=== PATIENT | female | born 1950 | race Caucasian/White ===

== ENCOUNTER 2017-12-27 15:28 | Outpatient (CLI) | payer MEDICARE ==
--- NOTE | 2017-12-27 16:56 | MRI ---
MRI OF THE RIGHT SHOULDER WITHOUT CONTRAST: 12/27/17 INDICATIONS: Right shoulder pain. FINDINGS: Motion artifact limits image detail. There is advanced glenohumeral osteoarthrosis. There is a prominent inferior projecting osteophyte of f of the humeral head. The biceps tendon appears to be located but there is marked tendinosis of the intra-articular biceps tendon. There is prominent degenerative fraying of the glenoid labrum. There i s prominent subchondral cyst-like abnormality seen involving the glenoid head. The rotator cuff does appear to be intact. There is diffuse moderate tendinosis of the supraspinatus, subscapularis and inf raspinatus. There is nonspecific moderate atrophy of the teres minor. This may be related to mass eff ect from the prominent humeral head osteophyte on the quadrangular space. Deltoid demonstrates normal muscle signal intensity and bulk. There is moderate AC joint osteoarthrosis. No lymphadenopathy is e vident. IMPRESSION: 1. Advanced osteoarthrosis of the right glenohumeral joint with a prominent inferior projecting osteophyte off of the humeral head causing mass effect on the quadrangular space with suspected compr ession of the axillary nerve and prominent atrophy of the teres minor. 2. No full thickness rotator cuff tear is demonstrated. There is moderate tendinosis of the subs capularis, supraspinatus and infraspinatus. 3. Prominent tendinosis of the intra-articular biceps tendon. 4. Moderate AC joint osteoarthrosis. 5. Some limitation of exam due to motion artifact. POS: [facility]
== END 2017-12-27 15:29 | disposition home or self-care (01) ==
LOC: SCSMRI 15:28
PROVIDERS: ATTEND Orthopaedic Surgery
DX: M25.511 Pain in right shoulder (principal); M19.011 Primary osteoarthritis, right shoulder; M25.711 Osteophyte, right shoulder; M67.813 Other specified disorders of tendon, right shoulder

== ENCOUNTER 2018-03-11 07:35 | Outpatient (CLI) | payer MEDICARE ==
--- NOTE | 2018-03-11 11:47 | CT ---
CT CHEST WITHOUT CONTRAST: 03/11/2018 PROVIDED CLINICAL HISTORY: Current smoker with nicotine dependence. Low dose lung screening. COMPARISON: 11/19/2016 TECHNIQUE: Examination was performed per low dose screening chest CT protocol. FINDINGS: The heart, pericardium, and great vessels are suboptimally evaluated without IV contrast but demonstr ate an unremarkable, unenhanced CT appearance, with the exception of vascular calcification. The air way appears patent and of normal caliber. There is no evidence for thoracic lymph node enlargement w ith limitations due to lack of IV contrast. A patchy, nonspecific focus of ground glass opacity in t he superior segment of the left lower lobe is stable. There are scattered additional areas of inhomo geneous density without a focal nodule. There is no pleural fluid, pleural thickening, or pneumothor ax apparent. The osseous structures demonstrate no concerning lytic or blastic lesions. IMPRESSION: Lung-RADS category 2-Benign findings. Annual screening recommended. POS: [facility]
== END 2018-03-11 07:36 | disposition home or self-care (01) ==
LOC: CT 07:35
PROVIDERS: ATTEND Family Medicine
DX: F17.210 Nicotine dependence, cigarettes, uncomplicated (principal); Z00.00 Encounter for general adult medical examination without abnormal findings
CPT/HCPCS: G0297

== ENCOUNTER 2018-04-08 08:51 | Outpatient (CLI) | payer MEDICARE ==
--- NOTE | 2018-04-08 10:14 | MMO ---
BILATERAL SCREENING MAMMOGRAMS: Comparison: 2016 This study is interpreted with the assistance of computer aided detection. FINDINGS: There are scattered fibroglandular densities. There is a new 6 mm nodular density in the mid left irwin ast seen on CC view only. I recommend that this be further evaluated with diagnostic left breast exam . IMPRESSION: BIRADS 0 - further imaging of the left breast required. POS: [facility]
== END 2018-04-08 08:52 | disposition home or self-care (01) ==
LOC: SCSMAMMO 08:51
PROVIDERS: ATTEND Family Medicine
DX: Z12.31 Encounter for screening mammogram for malignant neoplasm of breast (principal)
CPT/HCPCS: 77067

== ENCOUNTER 2018-04-17 14:13 | Outpatient (CLI) | payer MEDICARE ==
--- NOTE | 2018-04-17 15:48 | ULT ---
LIMITED LEFT BREAST ULTRASOUND: Date: 04/17/18 PROVIDED CLINICAL HISTORY: Abnormal mammogram. FINDINGS: Limited sonographic interrogation was performed of the left breast in the region of mammographic conc alon. A simple cyst is present at the retroareolar portion of the left breast corresponding to the tamiko mogram findings. IMPRESSION: BIRADS 2: Benign Finding(s) Return to annual screening mammography is recommended. POS: [facility]
== END 2018-04-17 14:14 | disposition home or self-care (01) ==
LOC: BICMAMMO 14:13
PROVIDERS: ATTEND Family Medicine
DX: R92.2 Inconclusive mammogram (principal); N63.20 Unspecified lump in the left breast, unspecified quadrant; Z80.3 Family history of malignant neoplasm of breast
CPT/HCPCS: 76642; 77065; G0279

== ENCOUNTER 2019-01-28 07:48 | Outpatient (CLI) | payer MEDICARE ==
[2019-01-28] MEDS ORDERED: Iopamidol 370 76% 100 ML VIAL ONE (10:14)
--- NOTE | 2019-01-28 11:17 | CT ---
CT ABDOMEN AND PELVIS WITHOUT CONTRAST CTA ABDOMEN AND PELVIS WITH IV CONTRAST AND 3D POSTPROCESSING: Date: 01/28/19 HISTORY: Abdominal aortic aneurysm without rupture. FINDINGS: The lung bases are unremarkable. No calcified gallstones are seen. The liver, spleen, pancreas, right adrenal gland, and left kidney are normal. There is a small low density lesion in the right renal cortex, likely cyst. There is a fo evaristo calcification in the lateral limb of the left adrenal gland. No free air, free fluid, or lymphade nopathy seen in the abdomen or pelvis. There are vascular calcifications with a 3.7 cm aneurysm of th e infrarenal abdominal aorta. No intimal flap is seen to suggest a dissection. There is good flow wit hout stenosis at the origins of the celiac axis, SMA, and ROSALBA. There is good flow in the renal arteri es without significant renal artery stenosis. There are degenerative changes with levoscoliosis of the lumbar spine. IMPRESSION: 3.7 cm infrarenal abdominal aortic aneurysm. POS: [facility]
== END 2019-01-28 07:49 | disposition home or self-care (01) ==
LOC: CT 07:48
PROVIDERS: ATTEND Thoracic Surgery (Cardiothoracic Vascular Surgery)
DX: I71.4 Abdominal aortic aneurysm, without rupture (principal)
CPT/HCPCS: 74174; 82565; Q9967

== ENCOUNTER 2019-04-10 19:43 | Inpatient (IN) | payer MEDICARE ==
[2019-04-10] MEDS ORDERED: Aspirin Chewable 81 MG TAB ONE (20:09)
[2019-04-10] MEDS ORDERED: Nitroglycerin 0.4 MG TAB (25 Tab Bottle) ONE (20:09)
[2019-04-10 20:15] LABS: #Basophils 0.1 thou/uL (0.0-0.2); #Eosinphils 0.2 thou/uL (0.0-0.7); #Lymphocytes 4.2 thou/uL (1.20-3.40); #Monocytes 0.7 thou/uL (0.11-0.59); #Neutrophils 5.8 thou/uL (1.40-6.50); %Basophils 1.1 % (0.0-1.0); %Eosinophils 1.5 % (0.0-10.0); %Monocytes 6.7 % (0.0-10.0); %Neutrophils 52.7 % (42.0-75.0); Mean Corpuscular HGB CONC 33.4 g/dL (32.0-36.0); Mean Corpuscular Hemoglobin 29.4 pg (27.0-31.0); Mean Corpuscular Volume 88.1 fL (78.0-98.0); Mean Platelet Volume 8.2 fL (7.4-10.4); Platelet Count 304 thou/uL (130-400); Red Blood Cell (RBC) Count 5.44 mill/uL (4.20-5.40)
[2019-04-10] MEDS ORDERED: Acetaminophen 500 MG TAB ONE (20:22)
--- NOTE | 2019-04-10 20:23 | RAD ---
EXAM: Chest one view: HISTORY: Chest pressure and shortness of breath COMPARISON: [facility] [employer] film from CT scan, 03/11/2018 FINDINGS: Large body habitus lowers the sensitivity of this study. Poor inspiration. Heart size: Borderline size. Lungs: Clear of acute process. No evidence for pneumonia, pleural effusion, acute edema, or pneumothorax, or other significant acute process. IMPRESSION: No significant acute intrathoracic disease. Stable appearance.
[2019-04-10 20:26] LABS: ALT (SGPT) 15 U/L (8-55); AST (SGOT) 20 U/L (5-34); Albumin 3.8 g/dL (3.4-4.8); Alkaline Phosphatase 103 U/L (40-110); Anion Gap 18 mmol/L (10-20); BUN (Urea Nitrogen) 12 mg/dL (9.8-20.1); Bilirubin, Total 0.4 mg/dL (0.2-1.2); Calc. Creatinine Clearance 0 mL/min (70-130); Calcium 9.6 mg/dL (7.8-10.44); Carbon Dioxide 26 mmol/L (23-31); Chloride 102 mmol/L (98-107); Estimated GFR-MDRD 57; Glucose 159 mg/dL (80-115); Potassium 3.6 mmol/L (3.5-5.1); Protein, Total 6.8 g/dL (6.0-8.3); Sodium 142 mmol/L (136-145)
[2019-04-10] MEDS ORDERED: methylPREDNISolone Sod Succ/PF 125 MG/2 ML VIAL ONE (20:55)
[2019-04-10] MEDS ORDERED: Nitroglycerin 2% Ointment 1 INCH/1 GM Packet ONE (20:55)
[2019-04-10] MEDS ORDERED: Famotidine/PF 20 mg/2ml Vial ONE (20:55)
[2019-04-10] MEDS ORDERED: diphenhydrAMINE 50 MG/ML VIAL ONE (20:55)
--- NOTE | 2019-04-10 22:23 | CT ---
EXAM: CT angiogram of the chest including 3-D rendering: HISTORY: Chest pain COMPARISON: None FINDINGS: Suboptimal opacification of pulmonary arteries related to poor bolus timing. No evidence for aortic aneurysm or dissection. No evidence for central pulmonary thrombosis. The more peripheral pulmonary arteries are less than op timally evaluated. No significant acute pulmonary parenchymal process. No evidence for mediastinal mass or adenopathy. No evidence for pleural or pericardial effusion. The visualized upper abdomen is unremarkable. IMPRESSION: No evidence for central pulmonary thrombosis. The smaller more peripheral branches are somewhat less than optimally imaged because of poor bolus timing.
[2019-04-10 23:22] LABS: Troponin I 0.015 ng/mL (< 0.028)
[2019-04-10 23:50] VITALS: BMI 45.8
--- NOTE | 2019-04-11 00:52 | PDOC.EVN ---
Event Note - Event Note Event Note: [id number] HP
--- NOTE | 2019-04-11 01:16 | HP ---
CHIEF COMPLAINT: Chest pain. HISTORY OF PRESENT ILLNESS: Ms. Alonzo is a 69-year-old female with past medical history of hyperlipidemia, obesity, presented to the emergency room with chest pain radiating to the anterior neck. The pain was sudden onset. She experienced such pain in the past but today, it was worse. Workup in the emergency room including initial troponin and EKG unremarkable. The patient was given sublingual nitroglycerin with relief of the pain. The pain is reproducible and chest wall is tender. Given the patient's presentation, the patient is being admitted in the hospital for further management. PAST MEDICAL HISTORY: 1. Hyperlipidemia. 2. GERD. 3. Back pain. 4. Right rotator cuff injury. PAST SURGICAL HISTORY: 1. Tonsillectomy. 2. Adenoidectomy. 3. Partial hysterectomy. 4. Anxiety and depression. SOCIAL HISTORY: She smokes less than half pack a day. Drinks alcohol socially. FAMILY HISTORY: Two brothers had heart attack, one of them in the 40s. HOME MEDICATIONS: Please see home medication reconciliation form for updated medications. ALLERGIES: THE PATIENT IS ALLERGIC TO IODINE AND IODINE CONTAINING PRODUCTS. REVIEW OF SYSTEMS: Review of 14 systems negative except what is mentioned in the history of present illness. PHYSICAL EXAMINATION: GENERAL: The patient is awake, alert, does not appear to be in acute distress. VITAL SIGNS: Blood pressure 140/80, pulse is 71, respiratory rate is 15. The patient is afebrile. HEAD AND NECK: Normocephalic, atraumatic. Neck is supple. No JVD. CHEST: Fair, bilateral air entry. HEART: S1, S2 regular. ABDOMEN: Obese, soft. Bowel sounds present. NEUROLOGIC: Awake, alert, oriented x3. PSYCH: Normal mood. EXTREMITIES: No clubbing, no cyanosis. LABORATORY DATA: WBC 11, hemoglobin 16, platelets 304. Glucose is 159, otherwise electrolytes unremarkable. Troponin is 0.01. CT angiogram of the chest done, which was negative for pulmonary embolism. ASSESSMENT: 1. Acute chest pain, rule out acute coronary syndrome. 2. Hyperlipidemia. 3. Family history of coronary heart disease. 4. Obesity. 5. Severe smoker. PLAN: 1. Admit. 2. Aspirin. 3. Serial cardiac enzymes. 4. Reconcile home medications. 5. DVT prophylaxis. Early ambulation. 6. Expected length of stay one midnight if patient is stable and further workup negative. Job ID: [id number]
[2019-04-11] MEDS: Nitroglycerin 2% Ointment 1 INCH/1 GM Packet TOP SCH ×2 (02:14→08:35)
[2019-04-11 02:55] LABS: Troponin I Less than 0.010 ng/mL (< 0.028)
[2019-04-11 03:13] LABS: Cardiac Risk 3.4 (Less than 4.5)
[2019-04-11] MEDS ORDERED: Acetaminophen 325 MG TAB PO PRN (04:15)
[2019-04-11] MEDS: Acetaminophen 325 MG TAB PO PRN (08:34)
[2019-04-11] MEDS: Aspirin 325 mg Enteric Coated Tablet PO SCH (08:35)
[2019-04-11] MEDS ORDERED: Enoxaparin Sodium 120 MG/0.8 ML SYRINGE SC SCH (13:16)
--- NOTE | 2019-04-11 13:25 | PDOC.HOSPP ---
- Subjective Encounter Date: 04/11/19 Encounter Time: 13:00 Subjective: Patient continues to have mild chest pain. She states that her pain started out of nowhere at rest, was in the middle of her chest, describes it as crushing radiating to her neck and her jaw. Her pain is worst when she lays on either side and worst on exertion. Patient states she has had relief with nitroglycerin patch placed in the hospital. Has had normal stress test ten years ago, but smokes 6 cigarettes a day, has been smoking for the past 49 years. SHe states that she has been taking ibuprofen regularly for rotator cuff injury on the right and needs surgery soon. - Objective Vital Signs & Weight: Vital Signs (12 hours) Temp Pulse Resp BP Pulse Ox 04/11/19 11:06 97.8 F 92 20 145/76 H 95 04/11/19 07:44 97.6 F 88 20 193/93 H 94 L 04/11/19 02:16 97.8 F 94 19 178/83 H 95 Weight Weight 258 lb 9.6 oz I&O: 04/10/19 04/11/19 04/12/19 06:59 06:59 06:59 Intake Total 720 Balance 720 Result Diagrams: 04/10/19 20:00 04/10/19 20:00 EKG Reviewed by me: Yes (normal sinus rhythym, inferior infarct age undetermined ) Hospitalist ROS - Review of Systems Respiratory: reports: other (productive cough noted) - Medication Medications: Active Medications Generic Name Dose Route Start Last Admin Trade Name Freq PRN Reason Stop Dose Admin Acetaminophen 650 mg 04/11/19 07:22 04/11/19 08:34 Tylenol PO 650 mg Q4H PRN Administration Headache/Fever or Pain Aspirin 325 mg 04/11/19 09:00 04/11/19 08:35 Ecotrin PO 325 mg DAILY KELSEY Administration - Exam General Appearance: awake alert General - other findings: Morbidly obese Eye: PERRL, anicteric sclera ENT: normocephalic atraumatic, no oropharyngeal lesions Neck: no JVD Heart: RRR, no murmur, no gallops, no rubs Heart - other findings: Some tenderness to palpation of chest on the left side Respiratory: CTAB, no wheezes, no rales Gastrointestinal: soft, non-tender, non-distended Extremities: no cyanosis, no clubbing, no edema Skin: normal turgor, no lesions Neurological: cranial nerve grossly intact, no focal deficits, no new deficit Musculoskeletal: normal tone, normal strength Psychiatric: normal affect, normal behavior, A&O x 3, oriented to person, oriented to place, oriented to time Hosp A/P - Plan Chest X ray: no acute disease CTA; no PE, smaller peripheral branches less than optimally imaged This is a 69 year old female with past medical history of chronic rotator cuff injury, tobacco abuse, hyperlipidemia who presented with crushing chest pain that's worst on exertion and positional, relieved with nitro, admitted for further workup #Unstable Angina #Hyperlipidemia - patient reports crushing chest pain at rest and on exertion, relieved with nitro. Has family history with two family members age 40 with heart attacks. EKG shows NSR. CTA shows no PE - on aspirin 325 mg daily, increase statin to 80 mg qhs, nitroglycerin prn - will start lovenox 1 mg/SC for now. - cardiology consult for cath on Saturday Tobacco abuse - patient is weaning off smoking Chronic rotator cuff injury - lidocaine patch Depression - cymbalta Vitamin D deficiency- cholecalciferol Morbid obesity - nutrition consult Code status: full code
[2019-04-11] MEDS: traMADol HCl 50 MG TAB PO PRN ×2 (14:28→22:36)
[2019-04-11 15:54] LABS: Anion Gap 12 mmol/L (10-20); BUN (Urea Nitrogen) 14 mg/dL (9.8-20.1); Calc. Creatinine Clearance 116 mL/min (70-130); Calcium 9.1 mg/dL (7.8-10.44); Carbon Dioxide 25 mmol/L (23-31); Chloride 101 mmol/L (98-107); Estimated GFR-MDRD 66; Glucose 163 mg/dL (80-115); Potassium 3.2 mmol/L (3.5-5.1); Sodium 135 mmol/L (136-145)
[2019-04-11] MEDS: Atorvastatin Calcium 40 MG TAB PO SCH (20:37)
[2019-04-11] MEDS: Enoxaparin Sodium 120 MG/0.8 ML SYRINGE SC SCH (20:37)
[2019-04-11] MEDS: DULoxetine 60 MG CAP PO SCH (21:15)
[2019-04-12 06:17] LABS: #Basophils 0.1 thou/uL (0.0-0.2); #Eosinphils 0.1 thou/uL (0.0-0.7); #Monocytes 1.1 thou/uL (0.11-0.59); #Neutrophils 8.6 thou/uL (1.40-6.50); %Basophils 0.4 % (0.0-1.0); %Eosinophils 0.6 % (0.0-10.0); %Lymphocytes 33.6 % (21.0-51.0); %Monocytes 7.4 % (0.0-10.0); Hemoglobin 14.9 g/dL (12.0-16.0); Mean Corpuscular HGB CONC 33.1 g/dL (32.0-36.0); Mean Corpuscular Hemoglobin 29.4 pg (27.0-31.0); Mean Corpuscular Volume 88.8 fL (78.0-98.0); Mean Platelet Volume 9.1 fL (7.4-10.4); Platelet Count 279 thou/uL (130-400); RBC Distribution Width 12.7 % (11.5-14.5); Red Blood Cell (RBC) Count 5.07 mill/uL (4.20-5.40); White Blood Cell (WBC) Count 14.8 thou/uL (4.8-10.8)
[2019-04-12 06:50] LABS: Anion Gap 14 mmol/L (10-20); BUN (Urea Nitrogen) 13 mg/dL (9.8-20.1); Calc. Creatinine Clearance 134 mL/min (70-130); Carbon Dioxide 23 mmol/L (23-31); Chloride 104 mmol/L (98-107); Estimated GFR-MDRD 78; Glucose 119 mg/dL (80-115); Potassium 3.2 mmol/L (3.5-5.1); Sodium 138 mmol/L (136-145)
[2019-04-12] MEDS: Aspirin 325 mg Enteric Coated Tablet PO SCH (08:25)
[2019-04-12] MEDS: Enoxaparin Sodium 120 MG/0.8 ML SYRINGE SC SCH (08:26)
[2019-04-12] MEDS ORDERED: Potassium Chloride 20 MEQ TAB PO SCH (09:00)
[2019-04-12] MEDS ORDERED: Communication Order-Pharmacy FS PRN (14:45)
--- NOTE | 2019-04-12 15:29 | PDOC.HOSPP ---
- Subjective Encounter Date: 04/12/19 Encounter Time: 14:30 Subjective: Today the patient denies any significant chest pain. She has not received any nitroglycerin since yesterday. She does seem to have a cough that's productive with bahena phlegm. No fevers or chills, no runny nose or sore throat. She is still short of breath on exertion - Objective Vital Signs & Weight: Vital Signs (12 hours) Temp Pulse Resp BP Pulse Ox 04/12/19 12:10 98 F 62 16 145/76 H 95 04/12/19 08:25 97.6 F 73 16 146/77 H 94 L 04/12/19 04:00 97.9 F 70 18 155/69 H 95 Weight Weight 261 lb I&O: 04/11/19 04/12/19 04/13/19 06:59 06:59 06:59 Intake Total 720 360 Balance 720 360 Result Diagrams: 04/12/19 05:52 04/12/19 05:52 Additional Labs: Accuchecks 04/12/19 10:29 POC Glucose 126 H Hospitalist ROS - Review of Systems Constitutional: denies: chills, sweats Eyes: reports: pain ENT: reports: ear discharge Gastrointestinal: denies: nausea, vomiting, abdominal pain, diarrhea - Medication Medications: Active Medications Generic Name Dose Route Start Last Admin Trade Name Freq PRN Reason Stop Dose Admin Acetaminophen 650 mg 04/11/19 07:22 04/11/19 08:34 Tylenol PO 650 mg Q4H PRN Administration Headache/Fever or Pain Aspirin 325 mg 04/11/19 09:00 04/12/19 08:25 Ecotrin PO 325 mg DAILY KELSEY Administration Atorvastatin Calcium 80 mg 04/11/19 21:00 04/11/19 20:37 Lipitor PO 80 mg HS KELSEY Administration Duloxetine HCl 60 mg 04/11/19 21:00 04/11/19 21:15 Cymbalta PO 60 mg HS KELSEY Administration Duloxetine HCl 40 mg 04/11/19 21:00 04/11/19 21:15 Cymbalta PO 40 mg HS KELSEY Administration Tramadol HCl 25 mg 04/11/19 13:40 04/11/19 22:36 Ultram PO 25 mg Q6H PRN Administration Headache - Exam General - other findings: Morbidly obese Eye: PERRL, anicteric sclera ENT: normocephalic atraumatic, no oropharyngeal lesions Neck: supple, symmetric, no JVD Heart: RRR, no murmur, no gallops, no rubs Respiratory: CTAB, no wheezes, no rales, no ronchi Gastrointestinal: soft, non-tender, non-distended Extremities: no cyanosis, no clubbing, no edema Skin: normal turgor, no lesions, no rashes Neurological: cranial nerve grossly intact, normal sensation to touch, no weakness Musculoskeletal: normal tone, normal strength, no muscle wasting Psychiatric: normal affect, normal behavior, A&O x 3 Hosp A/P - Plan Chest X ray: no acute disease CTA; no PE, smaller peripheral branches less than optimally imaged This is a 69 year old female with past medical history of chronic rotator cuff injury, tobacco abuse, hyperlipidemia who presented with crushing chest pain that's worst on exertion and positional, relieved with nitro, admitted for further workup #Chest pain - possibly unstable Angina #Hyperlipidemia - patient reports crushing chest pain at rest and on exertion, relieved with nitro. Has family history with two family members age 40 with heart attacks. EKG shows NSR. CTA shows no PE - on aspirin 325 mg daily, continue statin 80 mg qhs, nitroglycerin prn, lovenox 1 mg/SC for possible unstable angina. Cath on Saturday. NPO after midnight - add azithromycin since patient is coughing Leukocytosis - WBC increasing to 14, will add azithromycin for possible bronchitis/pneumonia Tobacco abuse - patient is weaning off smoking Chronic rotator cuff injury - lidocaine patch Depression - cymbalta Vitamin D deficiency- cholecalciferol Morbid obesity - nutrition consult Code status: full code
--- NOTE | 2019-04-12 16:05 | CON ---
DATE OF CONSULTATION: 04/12/2019 REASON FOR CONSULTATION: Chest pain and pressure. HISTORY OF PRESENT ILLNESS: Ms. Alonzo is a 69-year-old woman. She has a history of smoking. She had an episode on Saturday of pain in the middle of her chest going up into her neck. It came on suddenly. It did seem to be worse when she took a deep breath. She took her inhaler medication, seemed to get better, and she laid down. When she woke up, she had it again. This time, it did not seem to make a difference when she took a breath. She went to the emergency room. She had an unremarkable EKG, but the pain improved with nitroglycerin. The patient's chest wall is tender, but she has discomfort resolved with nitrates. The patient was brought in for observation. PAST HISTORY: 1. Hyperlipidemia. 2. Esophageal reflux. 3. Back pain. 4. Rotator cuff injury. SURGICAL HISTORY: Tonsillectomy, adenectomy, hysterectomy. SOCIAL HISTORY: Smokes half pack cigarettes per day. FAMILY HISTORY: Two brothers with NC. HOME MEDICINES: Please see nurse's notes. ALLERGIES: ALLERGIC TO IODINE, BUT SHE SAID THAT REALLY ONLY OCCURRED WHEN SHE WAS A CHILD. SHE HAD IODINE PUT ON HER SKIN AND BROKE HER OUT. REVIEW OF SYSTEMS: Fourteen system negative. PHYSICAL EXAMINATION: GENERAL: She is alert and oriented. Feels fine today. VITAL SIGNS: Her blood pressure is 145/76, pulse 62 and regular. HEENT: Eyes, sclerae nonicteric. Mouth, mucous membranes moist. NECK: Supple. No lymphadenopathy. LUNGS: Clear. CARDIAC: Normal S1, normal S2. There is no murmur, rub, or gallop. ABDOMEN: Obese, nontender. No hepatosplenomegaly. EXTREMITIES: Warm and dry. No clubbing. No cyanosis. There is no edema. PSYCHIATRIC: Mood and affect normal. NEUROLOGIC: Grossly normal. DIAGNOSTIC AND LABORATORY DATA: The troponin levels initially less than 0.010, followup 0.015. EKG, she does have some SVT episodes. Her LDL cholesterol is 106. Her medications at home did include atorvastatin 40 mg a day. ASSESSMENT: 1. Chest discomfort, some symptoms very suspicious for unstable angina. 2. Negative cardiac enzymes. 3. Supraventricular tachycardia. 4. History of hypercholesterolemia. 5. History of smoking. 6. Morbid obesity. BMI is 46. PLAN: 1. Discussed the options of stress testing versus cardiac catheterization. Catheterization would likely give the more definitive diagnosis. Stress testing based on her weight may be less definitive. The patient had explained to her the procedure of cardiac catheterization, explained the risk of stroke, heart attack, loss of blood supply to the leg or kidney, discussed stenting including vessel perforation, bleeding, stent thrombosis, stent restenosis. The patient understands and wished to proceed the more definitive test, cardiac catheterization. We will premedicate for iodine allergy. 2. Also replete potassium. 3. We will give aspirin. Job ID: [id number]
[2019-04-12] MEDS: predniSONE 20 MG TAB PO SCH (17:09)
[2019-04-12] MEDS: Famotidine 20 MG TAB PO SCH (17:09)
[2019-04-12] MEDS: Nitroglycerin 0.4 MG TAB (25 Tab Bottle) PO PRN ×2 (19:40→19:44)
[2019-04-12] MEDS ORDERED: Nitroglycerin 4.9 GM Bottle SL PRN (19:56)
[2019-04-12] MEDS ORDERED: Enoxaparin Sodium 80 MG/0.8 ML SYRINGE SC SCH (20:15)
[2019-04-12] MEDS: Acetaminophen 325 MG TAB PO PRN (20:50)
[2019-04-12] MEDS: Atorvastatin Calcium 40 MG TAB PO SCH (20:52)
[2019-04-12] MEDS: DULoxetine 60 MG CAP PO SCH (20:54)
[2019-04-13] MEDS: Famotidine 20 MG TAB PO SCH ×2 (00:27→06:07)
[2019-04-13] MEDS: predniSONE 20 MG TAB PO SCH ×2 (00:27→06:08)
[2019-04-13] MEDS: traMADol HCl 50 MG TAB PO PRN ×2 (02:32→14:07)
[2019-04-13] MEDS: hydrALAZINE 20 MG/ML VIAL SLOW IVP PRN ×2 (02:32→09:00)
[2019-04-13 05:36] LABS: Hemoglobin 16.2 g/dL (12.0-16.0); Mean Corpuscular HGB CONC 31.9 g/dL (32.0-36.0); Mean Corpuscular Hemoglobin 27.6 pg (27.0-31.0); Mean Corpuscular Volume 86.7 fL (78.0-98.0); Mean Platelet Volume 8.7 fL (7.4-10.4); Platelet Count 340 thou/uL (130-400); RBC Distribution Width 12.8 % (11.5-14.5); Red Blood Cell (RBC) Count 5.86 mill/uL (4.20-5.40); White Blood Cell (WBC) Count 14.1 thou/uL (4.8-10.8)
[2019-04-13] MEDS ORDERED: Diazepam 5 MG TAB PO SCH (06:00)
[2019-04-13] MEDS ORDERED: Sodium Chloride 0.9% 1,000 ML IV SCH (06:00)
[2019-04-13] MEDS: Aspirin 325 mg Enteric Coated Tablet PO SCH (06:09)
[2019-04-13 06:12] LABS: Anion Gap 17 mmol/L (10-20); BUN (Urea Nitrogen) 16 mg/dL (9.8-20.1); Calc. Creatinine Clearance 108 mL/min (70-130); Calcium 9.6 mg/dL (7.8-10.44); Carbon Dioxide 21 mmol/L (23-31); Chloride 104 mmol/L (98-107); Estimated GFR-MDRD 61; Glucose 176 mg/dL (80-115); Potassium 3.6 mmol/L (3.5-5.1); Sodium 138 mmol/L (136-145)
[2019-04-13] MEDS ORDERED: Lidocaine 1% (PF) 30 ML VIAL ONE (08:38)
[2019-04-13] MEDS ORDERED: Azithromycin 250 MG TAB PO SCH (09:00)
[2019-04-13] MEDS ORDERED: Fentanyl 100 MCG/2 ML VIAL ONE (09:25)
[2019-04-13] MEDS ORDERED: Midazolam HCl 2 mg/2 ml Vial ONE (09:25)
[2019-04-13] MEDS ORDERED: Metoprolol Tartrate 5 MG/5 ML VIAL ONE ×3 (09:37→10:05)
[2019-04-13] MEDS ORDERED: hydrALAZINE 20 MG/ML VIAL ONE (10:08)
[2019-04-13] MEDS ORDERED: Nitroglycerin 0.4 MG TAB (25 Tab Bottle) SL PRN (10:22)
[2019-04-13] MEDS ORDERED: Acetaminophen/Codeine 30-300mg Tablet PO PRN ×2 (10:22)
[2019-04-13] MEDS ORDERED: Sodium Chloride 0.9% 200 ML IV PRN (10:22)
[2019-04-13] MEDS ORDERED: Amlodipine 5 MG TAB PO SCH (10:30)
[2019-04-13] MEDS ORDERED: Lisinopril 5 MG TAB PO SCH (10:30)
[2019-04-13] MEDS ORDERED: Ondansetron PF 4 MG/2 ML Vial SLOW IVP PRN (12:55)
[2019-04-13] MEDS ORDERED: Ondansetron ODT 4 MG TAB PO PRN (17:03)
--- NOTE | 2019-04-13 17:40 | PDOC.HOSPP ---
- Subjective Encounter Date: 04/13/19 Encounter Time: 16:00 Subjective: The patient had a cath today which was normal. Reports that she has been nauseous and vomiting clear liquids. She has some mild chest pain that is crampy. She denies abdominal pain. Cough has improved some. She was given pepcid and zofran earlier which helped some. Per Dr Mckenzie, BP ranged from 150 to 220 in [facility] - Objective Vital Signs & Weight: Vital Signs (12 hours) Temp Pulse Resp BP BP Pulse Ox 04/13/19 11:05 98.1 F 65 18 158/71 H 96 04/13/19 10:59 71 166/77 H 04/13/19 07:20 97.6 F 88 18 178/89 H 97 Weight Weight 261 lb I&O: 04/12/19 04/13/19 04/14/19 06:59 06:59 06:59 Intake Total 360 960 Balance 360 960 Result Diagrams: 04/13/19 05:15 04/13/19 05:15 Hospitalist ROS - Review of Systems Constitutional: denies: fever, chills, sweats Respiratory: reports: cough Cardiovascular: denies: chest pain - Medication Medications: Active Medications Generic Name Dose Route Start Last Admin Trade Name Freq PRN Reason Stop Dose Admin Acetaminophen 650 mg 04/11/19 07:22 04/12/19 20:50 Tylenol PO 650 mg Q4H PRN Administration Headache/Fever or Pain Aspirin 325 mg 04/11/19 09:00 04/13/19 06:09 Ecotrin PO 325 mg DAILY KELSEY Administration Duloxetine HCl 60 mg 04/11/19 21:00 04/12/19 20:54 Cymbalta PO 60 mg HS KELSEY Administration Duloxetine HCl 40 mg 04/11/19 21:00 04/12/19 20:53 Cymbalta PO 40 mg HS KELSEY Administration Hydralazine HCl 10 mg 04/13/19 02:23 04/13/19 09:00 Apresoline SLOW IVP 10 mg Q4H PRN Administration SBP > 160, DBP > 90 Nitroglycerin 0.4 mg 04/11/19 00:25 04/12/19 19:44 Nitrostat PO 1 tab Q5MIN PRN Administration Chest Pain Ondansetron HCl 4 mg 04/13/19 12:55 04/13/19 13:08 Zofran SLOW IVP 4 mg Q6H PRN Administration Nausea/Vomiting Tramadol HCl 25 mg 04/11/19 13:40 04/13/19 14:07 Ultram PO 25 mg Q6H PRN Administration Headache - Exam General Appearance: NAD, awake alert Eye: PERRL, anicteric sclera Neck: supple, symmetric, no JVD Heart: RRR, no murmur, no gallops, no rubs Respiratory: CTAB, no wheezes, no rales, no ronchi Gastrointestinal: soft, non-tender, non-distended Extremities: no cyanosis, no clubbing, no edema Skin: normal turgor, no lesions, no rashes Neurological: cranial nerve grossly intact, normal sensation to touch, no focal deficits, no new deficit Musculoskeletal: normal tone, normal strength, no muscle wasting Hosp A/P - Plan Chest X ray: no acute disease CTA; no PE, smaller peripheral branches less than optimally imaged This is a 69 year old female with past medical history of chronic rotator cuff injury, tobacco abuse, hyperlipidemia who presented with crushing chest pain that's worst on exertion and positional, relieved with nitro, admitted for further workup #Chest pain - possibly GERD related vs esophageal spasm vs bronchitis #Hyperlipidemia - patient reports crushing chest pain at rest and on exertion, relieved with nitro. Has family history with two family members age 40 with heart attacks. EKG shows NSR. CTA shows no PE. Cath was normal - on aspirin 325 mg daily, continue statin 80 mg qhs, nitroglycerin prn - will d/c lovenox - add PPI, tums prn. Consider RUQ ultrasound tomorrow or EGD - continue azithiromycin Leukocytosis - improved - WBC downtrending, continue azithromycin day 2 for bronchtis Tobacco abuse - patient is weaning off smoking Chronic rotator cuff injury - lidocaine patch Depression - cymbalta Vitamin D deficiency- cholecalciferol Morbid obesity - nutrition consult Code status: full code
[2019-04-13] MEDS ORDERED: Atorvastatin Calcium 20 MG TAB PO SCH (21:00)
[2019-04-13] MEDS: DULoxetine 60 MG CAP PO SCH (21:35)
[2019-04-14 05:13] LABS: Hemoglobin 15.2 g/dL (12.0-16.0); Mean Corpuscular HGB CONC 33.6 g/dL (32.0-36.0); Mean Corpuscular Hemoglobin 29.6 pg (27.0-31.0); Mean Corpuscular Volume 88.2 fL (78.0-98.0); Mean Platelet Volume 8.2 fL (7.4-10.4); Platelet Count 294 thou/uL (130-400); RBC Distribution Width 12.9 % (11.5-14.5); Red Blood Cell (RBC) Count 5.13 mill/uL (4.20-5.40); White Blood Cell (WBC) Count 14.7 thou/uL (4.8-10.8)
[2019-04-14 05:38] LABS: ALT (SGPT) 25 U/L (8-55); AST (SGOT) 37 U/L (5-34); Albumin 3.6 g/dL (3.4-4.8); Alkaline Phosphatase 84 U/L (40-110); Anion Gap 12 mmol/L (10-20); BUN (Urea Nitrogen) 20 mg/dL (9.8-20.1); Bilirubin, Total 0.6 mg/dL (0.2-1.2); Calc. Creatinine Clearance 124 mL/min (70-130); Calcium 9.2 mg/dL (7.8-10.44); Carbon Dioxide 24 mmol/L (23-31); Chloride 105 mmol/L (98-107); Estimated GFR-MDRD 71; Globulin 2.9 g/dL (2.4-3.5); Glucose 125 mg/dL (80-115); Potassium 3.1 mmol/L (3.5-5.1); Protein, Total 6.5 g/dL (6.0-8.3); Sodium 138 mmol/L (136-145)
[2019-04-14] MEDS ORDERED: Azithromycin 250 MG TAB PO SCH (09:00)
[2019-04-14] MEDS ORDERED: Potassium Chloride 20 MEQ TAB PO SCH (09:00)
[2019-04-14] MEDS ORDERED: Amlodipine 5 MG TAB PO SCH (09:00)
[2019-04-14] MEDS ORDERED: Lisinopril 5 MG TAB PO SCH (09:00)
--- NOTE | 2019-04-14 09:01 | ULT ---
Right upper quadrant ultrasound: 04/14/2019 COMPARISON: None HISTORY: Chest pain and abdominal pain TECHNIQUE: Multiplanar grayscale sonographic imaging of the right upper quadrant obtained FINDINGS: The imaged pancreas appears grossly unremarkable. The tail is partially obscured by bowel g as. No focal liver lesion or intrahepatic biliary dilatation is noted. There is no gallbladder wall thickening or pericholecystic fluid. No gallstones are noted. The common bile duct measures 5 mm, within normal limits. The right kidney measures 10.7 cm in craniocaudal dimension and demonstrates no evidence for stone, h ydronephrosis, or mass lesion. The geography department chair reports a negative Rodarte's sign. IMPRESSION: No acute findings.
--- NOTE | 2019-04-14 10:02 | PRG ---
DATE OF SERVICE: 04/14/2019 SUBJECTIVE: Ms. Alonzo is doing well today. Her blood pressure is controlled. She is not having any chest pain or pressure. Ultrasound of the gallbladder was done, the results are pending. OBJECTIVE: VITAL SIGNS: Her blood pressure is 139/61, pulse 84 and regular. LUNGS: Clear. CARDIAC: Normal S1. Normal S2. ASSESSMENT: 1. Labile hypertension, adequately controlled presently, currently on amlodipine 5 mg a day and lisinopril 5 mg a day. 2. Normal coronary arteries. 3. Chest pain, suspect esophageal reflux. PLAN: Okay to go home. Follow up with her primary care physician. We will sign off. Job ID: [id number]
[2019-04-14 13:05] VITALS: BP 123/58; TEMP 97.6
--- NOTE | 2019-04-14 19:01 | DIS ---
DATE OF ADMISSION: 04/11/2019 DATE OF DISCHARGE: 04/14/2019 DISCHARGE DIAGNOSIS: Chest pain likely secondary to gastroesophageal reflux disease versus esophageal spasm versus bronchitis. SECONDARY DISCHARGE DIAGNOSES: Hyperlipidemia, leukocytosis, tobacco abuse, chronic rotator cuff injury, depression, vitamin D deficiency, morbid obesity. CONSULTATIONS: Cardiology, Dr. Brian Mckenzie MD. PROCEDURES: Cardiac catheterization, which was reportedly normal; however, full report is not available for viewing. HISTORY AND HOSPITAL COURSE: Chest pain likely secondary to GERD: The patient is a 69-year-old female, who presented with chest pain that was on the left side of her chest that was radiating to her jaw and her anterior neck that was relieved with nitroglycerin. She was admitted for observation. The patient was monitored on telemetry. No arrhythmias were noted. Her troponins were normal. Given her family history of heart attacks at a young age and her pain being relieved with nitroglycerin, cardiology was consulted for a cardiac cath. The patient was anticoagulated and was changed to inpatient admission and underwent catheterization on 04/13/2019. Reportedly the results were normal per Dr. Mckenzie. After the catheterization, the patient complained of dysphagia and vomiting with food intake. She continued to have mild chest pain. It was suspected that she may have GERD. She was started on Protonix. She was kept overnight and underwent ultrasound of her abdomen, which did not show any evidence of gallstones. On the day of discharge, the patient stated that her chest pain had resolved and she no longer had jaw pain, neck pain, or cough. She will be discharged on Protonix 40 mg daily for possible GERD. Bronchitis: The patient had reported a productive cough with bahena sputum. CTA of her chest had shown no evidence of a PE, and chest x-ray showed no acute disease. She did however, have a leukocytosis of 11 on admission, which had increased to 14.8 on 04/12. She was started on azithromycin for possible bronchitis given her history of COPD. Her white blood cell count did downtrend to 14.1 on 04/13; however, increased again to 14.7 on 04/14. Clinically, however, she is doing better. Therefore, she will be continued on her azithromycin to complete a 5- day course. SHe should follow up with her PCP. She did not need steroids since she had no wheezing or congestion. Hypertension: The patient was noted to have BP of 140 to 200 in the hospital. She was started on amlodipine and lisinopril in the hospital and will be discharged on these medications. She should have followup of her blood pressure with her PCP. She was told that if she starts noticing a cough, to consider discontinuing her lisinopril. Leukocytosis: The patient had a leukocytosis of 11 on admission, and on day of discharge, her white blood cell count was still elevated at 14.7. She will continue with azithromycin; however, she should follow up with her PCP in a week and have her CBC repeated. Tobacco abuse: The patient was actively smoking on admission. She refused nicotine patch on the day of discharge, because she stated that she feels that she no longer has any cravings to smoke. Chronic rotator cuff injury: The patient to continue lidocaine patch. Depression: The patient will continue on Cymbalta. Morbid obesity: The patient was advised to lose weight and educated on weight loss. Vitamin D deficiency: The patient will continue on her cholecalciferol. PERTINENT IMAGING: Chest x-ray on 04/10/2019: No significant acute intrathoracic disease. Stable appearance. CTA thorax on 04/10/2019: No evidence for central pulmonary thrombosis. The smaller more peripheral branches are somewhat less than optimally imaged because of poor bolus timing. Abdominal ultrasound on 04/14/2019: There is no gallbladder wall thickening or pericholecystic fluid. No gallstones are identified. There is no focal liver lesion or intrahepatic biliary dilation. Pancreas appears grossly unremarkable. PHYSICAL EXAMINATION ON DAY OF DISCHARGE: VITAL SIGNS: Temperature 97.6, pulse 85, respiratory rate 16, O2 saturation 96% on room air, blood pressure 123/58. GENERAL: The patient is morbidly obese, awake, alert, and oriented. CVS: Regular rate and rhythm. No murmurs, rubs, or gallops. LUNGS: Clear to auscultation bilaterally. ABDOMEN: Positive bowel sounds. Soft/nontender/nondistended. EXTREMITIES: No edema appreciated. PERTINENT LABORATORY DATA: CBC: White blood cell count was 11 on 04/10/2019 and increased to 14.7 on 04/14/2019. Rest of CBC was unremarkable. BMP shows potassium of 3.1 on the day of discharge and a glucose of 125 on day of discharge. AST was also noted to be 37 on the day of discharge. Lipid panel was unremarkable with an LDL of 106, HDL of 51, and triglycerides of 68. CONDITION UPON DISCHARGE: The patient is alert and oriented and tolerating a regular diet. ACTIVITY: As tolerated. DIET: Heart healthy diet. FOLLOWUP: PCP in 1 week. The patient should have repeat BMP done and CBC to assess the resolution of leukocytosis and hypokalemia. MEDICATIONS AT DISCHARGE: 1. Amlodipine 5 mg daily. 2. Azithromycin 250 mg p.o. daily for 3 days. 3. Lisinopril 5 mg p.o. daily. 4. Protonix 40 mg daily. 5. Duloxetine 100 mg p.o. at bedtime. 6. Cholecalciferol 5000 units p.o. daily. 7. Atorvastatin 20 mg p.o. at bedtime. 8. Albuterol sulfate 1 to 2 puffs p.r.n. Job ID: [id number]
== END 2019-04-14 14:09 | disposition home or self-care (01) | DRG 202 ==
LOC: SCSER 19:43 → 2SW 22:40 → OBSVTOIN 04-11 13:51 → 2NO 04-11 22:16
PROVIDERS: ADMIT Internal Medicine; ATTEND Internal Medicine
PROC: 4A023N7 Measurement of Cardiac Sampling and Pressure, Left Heart, Percutaneous Approach (ICD-10-PCS; principal; 2019-04-11)
PROC: B2111ZZ Fluoroscopy of Multiple Coronary Arteries using Low Osmolar Contrast (ICD-10-PCS; 2019-04-11)
PROC: B2151ZZ Fluoroscopy of Left Heart using Low Osmolar Contrast (ICD-10-PCS; 2019-04-11)
DX: J40 Bronchitis, not specified as acute or chronic (principal); Z68.42 Body mass index [BMI] 45.0-49.9, adult; I47.1 Supraventricular tachycardia; K21.9 Gastro-esophageal reflux disease without esophagitis; K22.4 Dyskinesia of esophagus; E78.5 Hyperlipidemia, unspecified; D72.829 Elevated white blood cell count, unspecified; F32.9 Major depressive disorder, single episode, unspecified; I10 Essential (primary) hypertension; E55.9 Vitamin D deficiency, unspecified; E66.01 Morbid (severe) obesity due to excess calories; F41.9 Anxiety disorder, unspecified; F17.210 Nicotine dependence, cigarettes, uncomplicated; M75.120 Complete rotator cuff tear or rupture of unspecified shoulder, not specified as traumatic; Z90.49 Acquired absence of other specified parts of digestive tract; Z90.89 Acquired absence of other organs; Z90.710 Acquired absence of both cervix and uterus; Z91.041 Radiographic dye allergy status
CPT/HCPCS: 36415; 36416; 71045; 71275; 76705; 76942; 80048; 80053; 80061; 84484; 85025; 85027; 85379; 93005; 93010; 93458; 94760; 96374; 96375; 99152; 99153; 99406; C1769; J0360; J1200; J1644; J1650; J2001; J2250; J2405; J2930; J3010; J7512; Q0162; S0028

== ENCOUNTER 2021-07-26 07:57 | Outpatient (CLI) | payer MEDICARE | END 2021-07-26 07:58 | disposition home or self-care (01) | LOC: RAD 07:57 | PROVIDERS: ATTEND Internal Medicine Critical Care Medicine | DX: R06.00 Dyspnea, unspecified (principal) | CPT/HCPCS: 71046 ==